=== PATIENT | male | born 1950 | race Caucasian/White ===

== ENCOUNTER 2016-10-28 21:06 | Emergency (ER) | payer OTHER ==
[~2016-10-28] VITALS: Ht 188 cm; Wt 90.9 kg
[2016-10-28 21:11] VITALS: BP 127/82; PULSE 73; RESP 20; O2SAT 97
--- NOTE | 2016-10-28 22:44 | ED.REPORT ---
HPI-Rash / Abscess Date of Service Oct 28, 2016 ED Provider: Kelvin Clifton Ch[place] BAR[place]OUR Pt is an otherwise healthy 65 y/o male w/ a hx of MRSA abscesses, presenting to the ED c/o abscess about the R gluteal cleft onset 2 weeks ago. He has had similar abscess previously which required I&D. He has not seen a provider or taken antibiotics for this yet. He denies any other symptoms. Nursing Notes Stated Complaint: WOUND INFECTION Chief Complaint: Skin Rash/Abscess Nursing Notes Reviewed: Yes Allergies: Coded Allergies: No Known Allergies (Unverified Allergy, Unknown, 02/23/15) Scheduled Sulfamethoxazole/Trimeth 800-160 mg (Bactrim DS) 1 Each Tablet 1 TABLET PO BID General Time Seen by MD: 22:43 Chief Complaint Abscess Hx Obtained From: Patient Arrived By: Walk-in Onset Occurred: More than a week ago... (2 weeks) Symptom Duration: Since onset Location: : Buttock Quality: Painful Severity: Current: Moderate Severity: Maximum: Moderate Recent Healthcare: Previous diagnosis Similar Sx Previous: Yes Past Medical History Past Medical History Hx MRSA abscesses Tuberculosis Arthritis Otherwise denies Past Surgical History Sinus Tonsillectomy Smoking History Never Smoker Social History Alcohol Use: "Social" Drug Use: Denies drug use Ambulatory Status Independent Review of Systems Review of Systems Note: +buttock pain Constitutional: Denies: Chills, Fever GI: Denies: Nausea, Vomiting Skin: Reports Rash, Reports Swelling Complete sys rev & neg: except as marked. Physical Exam Initial Vital Signs Vital Signs (First) Date Time Temp Pulse Resp B/P Pulse Ox O2 Delivery O2 Flow Rate FiO2 10/28/16 21:11 36.6 73 20 127/82 97 Room Air Initial VS: Reviewed, Vital signs normal Head / Eyes: Atraumatic, Normocephalic ENT: Mucous membranes moist, Conjunctiva normal, No scleral icterus Neck: Supple, Full range of motion Respiratory: Breath sounds normal, Clear to auscultation, No respiratory distress Cardiovascular: Regular rate & rhythm, Heart sounds normal, Intact distal pulses Abdomen / GI: Soft, Non-tender Extremities: Vascular intact, Neuro intact, No swelling Neurologic: Alert, Oriented, Nonfocal Psychiatric: Mood/affect normal, Behavior normal, Normal thought content General/Constitutional: Awake, Alert, No acute distress, Cooperative, Not toxic appearing Skin: Warm, Dry, Intact Abscess Notes: Right gluteal cleft: 5 cm area of cellulitis with central induration and fluctuance with a small amount of black ulceration Interpretation & Diagnostics Lab Results Interpretation Result Diagram: 10/28/16 2257 10/28/16 2257 Test 10/28/16 22:57 White Blood Count 12.4th/mm3 (3.8-10.1) Red Blood Count 3.87mil/mm3 (4.40-5.80) Hemoglobin 12.4g/dL (13.8-17.2) Hematocrit 37.2% (41.0-50.0) Mean Corpuscular Volume 96.1fL (81-100) Mean Corpuscular Hemoglobin 32.0pg (27.0-35.0) Mean Corpuscular Hemoglobin Concent 33.3% (32.0-37.0) Red Cell Distribution Width 12.9% (12.3-15.4) Platelet Count 185bil/L (150-400) Neutrophils (%) (Auto) 73.1% (40-74) Lymphocytes (%) (Auto) 12.6% (14-46) Monocytes (%) (Auto) 11.7% (4-12) Eosinophils (%) (Auto) 2.1% (0-5) Basophils (%) (Auto) 0.3% (0-3) Sodium Level 138mEq/L (134-144) Potassium Level 3.6mEq/L (3.5-5.2) Chloride Level 103mEq/L (97-108) Carbon Dioxide Level 24mmol/L (18-29) Blood Urea Nitrogen 16mg/dL (8-27) Creatinine 0.48mg/dL (0.76-1.27) Estimat Glomerular Filtration Rate 187mL/min (>59) Glucose Level 85mg/dL (60-99) Calcium Level 9.1mg/dL (8.5-10.1) Total Bilirubin 0.6mg/dL (0.0-1.2) Aspartate Amino Transf (AST/SGOT) 23U/L (0-50) Alanine Aminotransferase (ALT/SGPT) 23U/L (0-44) Alkaline Phosphatase 93U/L (25-160) Total Protein 6.8g/dL (6.4-8.4) Albumin 4.1g/dL (3.4-5.0) Hold Jaime Top Tube Received (Received) Procedures Incision & Drainage Abscess Time: 23:45 Procedure Performed by: ED physician Consent / Setup / Site Prep: Consent from patient, Hand hygiene observed, Stand sterile technique Location of Abscess: Right gluteal cleft Skin Preparation Agent: Shurclens Local Anesthesia: Lidocaine w epi 1% Incised Abscess with Scalpel: #11 Pus Drained: Small, Purulent discharge Irrigation: Yes, Copious Post-Procedure / Complications: Packing placed, Culture obtained, Dressing applied, No complications, Condition improved, Tolerated procedure well, Patient stable Re-Eval/Medical Decision Med Decision/Clinical Course No signs of sepsis, however he does have mildly elevated white blood cell count. Patient is not diabetic or smoker. I tried to review previous reported MRSA positive culture one year ago with last abscess, however it appears it was not at our hospital. I am covering him for MRSA with Bactrim. Culture pending. Patient will plan to follow up with PCP later this week or early next week. Source of Hx: Old records Re-Evaluation/Progress : Time of Eval: 23:44 Re-Evaluation/Progress Note: Pt rechecked. I&D performed without complications. Informed pt of plan for discharge. Pt understands and agrees with plan for discharge. F/U instructions and RTER warnings given. All questions addressed. Counseled Regarding: Diagnosis, Lab results, Need for follow-up, When/why to return to ED Discharge & Departure Impression: Primary Impression: Cellulitis and abscess of buttock Additional Impression: Leukocytosis Leukocytosis type: unspecified Qualified Code: D72.829 - Elevated white blood cell count, unspecified Disposition: Home Discharge Condition All VS Reviewed: Yes Condition: Stable Patient Instructions: Abscess (ED), Cellulitis (ED) Additional Instructions: You have an abscess with surrounding cellulitis. It was incised and drained today. It should begin to heal. Take the full course of antibiotics as prescribed. Follow-up with your primary care doctor in later this week or early next week for a recheck. Remove the small piece of packing inside the wound in 2-3 days. You can change the outer dressing as needed. It is okay to get the wound wet and to wash with soap and water. Return to the emergency department if you experience: worsening pain/swelling/ redness, fever, persistent vomiting, or for other concerning symptoms. Referrals: Madai Martin PA-C (PCP) Scribe Attestation Portions of this note were transcribed by Tobias Harris. I, Dr. Clifton personally performed the history, physical exam and medical decision-making; I reviewed and confirmed the accuracy of the information in the transcribed note. copies to: Madai Martin PA-C, Gary R DO Oct 28, 2016 22:44 TOBIAS HARRIS Oct 28, 2016 23:17
[2016-10-28 23:06] LABS: BASOPHILS % (AUTO) 0.3 % (0-3); EOSINOPHILS % (AUTO) 2.1 % (0-5); MONOCYTES % (AUTO) 11.7 % (4-12); Mean Corpuscular Volume 96.1 fL (81-100); NEUTROPHILS % (AUTO) 73.1 % (40-74); Platelet Count 185 bil/L (150-400)
[2016-10-28] MEDS ORDERED: Lidocaine 1%-Epi 1:100,000 20 mL Inj ONE (23:30)
[2016-10-29] MEDS ORDERED: Trimethoprim-Sulfa 160 mg-800 mg Tablet PO ONE (00:05)
[2016-10-29] MEDS ORDERED: SULF1TAB7 PO (00:11)
== END 2016-10-29 00:19 | disposition home or self-care (01) ==
LOC: SED 21:06
DX: L03.317 Cellulitis of buttock (principal); L02.31 Cutaneous abscess of buttock; D72.829 Elevated white blood cell count, unspecified; Z86.14 Personal history of Methicillin resistant Staphylococcus aureus infection